=== PATIENT | male | born 1990 | race Caucasian/White ===

== ENCOUNTER 2018-01-02 17:55 | Emergency (ER) | payer SELFPAY ==
[2018-01-02 18:05] VITALS: BP 121/67; PULSE 67; TEMP 99; BMI 27.4
[2018-01-02] MEDS ORDERED: TETRACAINE 0.5% HCL 0.6ML DROPPER.BOTTLE OD ONE (18:28)
[2018-01-02] MEDS ORDERED: DIPHTH,PERTUSS(ACELL),TET 0.5 ML DISP.SYRIN IM ONE (18:34)
--- NOTE | 2018-01-02 18:38 | PDOC ---
History of Present Illness - General Chief Complaint: Eye Problem Stated Complaint: Eye Problem Time Seen by Provider: 01/02/18 18:02 - History of Present Illness Initial Comments: 27-year-old male without comorbidities presents for evaluation of right eye irritation times one day. He is unsure of his current tetanus status. He states he was cutting a piece of sheet metal and he feels a piece of metal male gotten into his eye. He has no other associated symptoms other than right eye pain and irritation 01/02/18 18:35 Past History - Past Medical History Allergies/Adverse Reactions: Allergies Allergy/AdvReac Type Severity Reaction Status Date / Time No Known Allergies Allergy Verified 01/02/18 18:02 Home Medications: Ambulatory Orders Tobramycin 0.3% Ophth Soln [Tobrex Ophthalmic Solution -] 1 drop OD Q4HWA #1 bottle 01/02/18 COPD: No - Suicide/Smoking/Psychosocial Hx Smoking History: Never smoked Have you smoked in the past 12 months: No Information on smoking cessation initiated: No Hx Alcohol Use: No Drug/Substance Use Hx: No Substance Use Type: None Review of Systems - Review of Systems HEENTM: Yes: See HPI, Eye Pain, Tearing *Physical Exam - Vital Signs Last Vital Signs Temp Pulse Resp BP Pulse Ox 99.0 F 67 18 121/67 100 01/02/18 18:02 01/02/18 18:02 01/02/18 18:02 01/02/18 18:02 01/02/18 18:02 - Physical Exam Comments: HEAD: NC/AT EYES: Left eye is normal right eye conjunctiva is injected, fluoresceins stain was done. Is a large corneal abrasion on the anterior aspect of the right eye. With fluorescein staining I do not appreciate any foreign body however there appears to be a foreign body at the 3 o'clock position on the eyeball MS: Full ROM in all joints without edema NEUROLOGIC: No gross sensory or motor deficits, NVID SKIN: Normal color and temperature no lesions or rashes 01/02/18 18:35 *DC/Admit/Observation/Transfer Diagnosis at time of Disposition: Foreign body, eye, Corneal abrasion, right - Discharge Dispostion Disposition: HOME Condition at time of disposition: Stable Decision to Admit order: No - Prescriptions Prescriptions: Tobramycin 0.3% Ophth Soln [Tobrex Ophthalmic Solution -] 1 drop OD Q4HWA #1 bottle - Referrals Referrals: Errol Sherwood MD [Staff Physician] - - Patient Instructions Printed Discharge Instructions: DI for Corneal Abrasion, Corneal Abrasion, DI for Foreign Body in the Eye Additional Instructions: Return to the emergency room should symptoms worsen or go unresolved. Follow-up with ophthalmology in 1 day for further evaluation and treatment options. Please use the antibiotic drops as directed. Tetanus shot was updated today. - Post Discharge Activity
== END 2018-01-02 18:42 | disposition home or self-care (01) ==
LOC: JERFT 17:55
PROC: 3E0234Z Introduction of Serum, Toxoid and Vaccine into Muscle, Percutaneous Approach (ICD-10-PCS; principal; 2018-01-02)
DX: S05.01XA Injury of conjunctiva and corneal abrasion without foreign body, right eye, initial encounter (principal); T15.81XA Foreign body in other and multiple parts of external eye, right eye, initial encounter; W22.8XXA Striking against or struck by other objects, initial encounter; Y93.89 Activity, other specified; Y92.89 Other specified places as the place of occurrence of the external cause; Y99.8 Other external cause status
CPT/HCPCS: 90715; 99281-25